=== PATIENT | female | born 2000 | race Caucasian/White ===

== ENCOUNTER 2018-02-18 15:52 | Emergency (ER) | payer MEDICAID, OTHER ==
[~2018-02-18] VITALS: Ht 172.7 cm; Wt 90.0 kg
[2018-02-18 15:58] VITALS: BP 138/79; PULSE 110; RESP 19; TEMP 99.1; O2SAT 97
[2018-02-18] MEDS ORDERED: SODIUM CHLOR 0.9% 1000 ML INJ 1,000 ML IV ONE (16:08)
[2018-02-18] MEDS ORDERED: SODIUM CHLORIDE 0.9% FLUSH 10 ML FLUSH IVF PRN (16:15)
[2018-02-18] MEDS ORDERED: OXYC1CAP PO (16:39)
[2018-02-18] MEDS ORDERED: BACL10TA PO (16:39)
[2018-02-18] MEDS ORDERED: CYCL10TA PO (16:39)
[2018-02-18] MEDS ORDERED: DIAZ10TA PO (16:39)
[2018-02-18] MEDS ORDERED: MORP1TAB24 PO (16:39)
[2018-02-18] MEDS ORDERED: GABA300C5 PO (16:39)
[2018-02-18 16:40] LABS: AUTOMATED NEUTROPHIL # 5.3 TH/MM3 (1.8-7.7); BASOPHIL # 0.1 TH/MM3 (0-0.2); EOSINOPHIL # 0.3 TH/MM3 (0-0.4); EOSINOPHIL % 2.9 % (0.0-4.0); HEMATOCRIT 29.6 % (35.0-46.0); HEMOGLOBIN 9.9 GM/DL (11.6-15.3); LYMPH % 31.1 % (9.0-44.0); LYMPHOCYTE # 2.7 TH/MM3 (1.0-4.8); MEAN CELL VOLUME 85.3 FL (80.0-100.0); MEAN CORPUSCULAR HEMOGLOBIN 28.7 PG (27.0-34.0); MEAN CORPUSCULAR HGB CONC 33.6 % (32.0-36.0); MONO % 5.2 % (0.0-8.0); MONOCYTE # 0.5 TH/MM3 (0-0.9); NEUT % 59.8 % (16.0-70.0); PLATELET COUNT 733 TH/MM3 (150-450); RED BLOOD COUNT 3.46 MIL/MM3 (4.00-5.30); RED CELL DISTRIBUTION WIDTH 13.7 % (11.6-17.2); WHITE BLOOD COUNT 8.8 TH/MM3 (4.0-11.0)
--- NOTE | 2018-02-18 16:43 | PD ---
HPI Chief Complaint: Altered Mental Status Time Seen by Provider: 16:07 Travel History International Travel<30 days: No Contact w/Intl Traveler<30days: No Traveled to known affect area: No History of Present Illness HPI 18-year-old female patient with history of lumbar surgery with with [facility], complicated by lumbar neuropathy and radiculopathy, has difficulty with her urine and bowel, weakness in her right leg since the surgery several months ago according to parents, has been getting rehab at a facility first and is now at home, had problems with UTI recently, and had been released to go back home with several pain medications, medications for muscle spasms, and today started having syncopal episodes this afternoon. Patient was fairly disoriented when she woke up, thought she was 1 years old, did not recognize people. She admits that she has been on a lot of pain medications. In addition, in the past week she has seen doctors at [facility] as well as [place], apparently due to the above issues and had workup which did not show any signs of acute intracranial processes although they did note that there is some fluid at the surgical site in the lumbar region but this fluid is thought to be related to surgery and likely to resorb on its own according to her neurosurgeon. Modifying Factors: None Associated Signs & Symptoms: Syncopal episodes, altered mental status Risk Factors: Pain medications PFSH Past Medical History Medical History: Denies Significant Hx Diminished Hearing: No Immunizations Current: Yes ?: Not Menopausal: No : 0 Para: 0 Social History Alcohol Use: No Tobacco Use: No Substance Use: No Allergies-Medications (Allergen,Severity, Reaction): Coded Allergies: penicillin G (Unverified Allergy, Unknown, Rash, 02/18/18) Reported Meds & Prescriptions Reported Meds & Active Scripts Active Reported Gabapentin 300 Mg Cap 300 Mg PO TID Flexeril (Cyclobenzaprine HCl) 10 Mg Tab 10 Mg PO TID Baclofen 10 Mg Tab 10 Mg PO Q8HR Diazepam 10 Mg Tab 10 Mg PO Q8HR PRN Oxycodone (Oxycodone HCl) 5 Mg Cap 5 Mg PO Q4H PRN Take 1 -2 tablets every 4 hours as needed for pain Morphine ER (Morphine Sulfate) 15 Mg Tab 15 Mg PO Q12HR Review of Systems Except as stated in HPI: all other systems reviewed are Neg Physical Exam Narrative GENERAL: Well-developed young white female patient who currently has a Evans catheter, diaper on, and is lethargic but arousable and oriented. SKIN: Focused skin assessment warm/dry. HEAD: Atraumatic. Normocephalic. EYES: Pupils equal and round. No scleral icterus. No injection or drainage. ENT: No nasal bleeding or discharge. Mucous membranes pink and moist. NECK: Trachea midline. No JVD. CARDIOVASCULAR: Regular rate and rhythm. No murmur appreciated. RESPIRATORY: No accessory muscle use. Clear to auscultation. Breath sounds equal bilaterally. GASTROINTESTINAL: Abdomen soft, non-tender, nondistended. Hepatic and splenic margins not palpable. MUSCULOSKELETAL: No obvious deformities. No clubbing. No cyanosis. No edema. NEUROLOGICAL: Awake and lethargic. No obvious cranial nerve deficits. Motor grossly within normal limits. Normal speech. PSYCHIATRIC: Appropriate mood and affect; insight and judgment normal. Data Data Last Documented VS Vital Signs Date Time Temp Pulse Resp B/P (MAP) Pulse Ox O2 Delivery O2 Flow Rate FiO2 02/18/18 18:16 98.3 93 17 121/70 (87) 99 Room Air Orders Orders Ed Urine Pregnancytest Poc (02/18/18 16:08) Complete Blood Count With Diff (02/18/18 16:08) Comprehensive Metabolic Panel (02/18/18 16:08) Urinalysis - C+S If Indicated (02/18/18 16:08) Ecg Monitoring (02/18/18 16:08) Iv Access Insert/Monitor (02/18/18 16:08) Oximetry (02/18/18 16:08) Sodium Chloride 0.9% Flush (Ns Flush) (02/18/18 16:15) Sodium Chlor 0.9% 1000 Ml Inj (Ns 1000 M (02/18/18 16:08) Labs Laboratory Tests Test 02/18/18 16:10 White Blood Count 8.8 TH/MM3 Red Blood Count 3.46 MIL/MM3 Hemoglobin 9.9 GM/DL Hematocrit 29.6 % Mean Corpuscular Volume 85.3 FL Mean Corpuscular Hemoglobin 28.7 PG Mean Corpuscular Hemoglobin Concent 33.6 % Red Cell Distribution Width 13.7 % Platelet Count 733 TH/MM3 Mean Platelet Volume 8.0 FL Neutrophils (%) (Auto) 59.8 % Lymphocytes (%) (Auto) 31.1 % Monocytes (%) (Auto) 5.2 % Eosinophils (%) (Auto) 2.9 % Basophils (%) (Auto) 1.0 % Neutrophils # (Auto) 5.3 TH/MM3 Lymphocytes # (Auto) 2.7 TH/MM3 Monocytes # (Auto) 0.5 TH/MM3 Eosinophils # (Auto) 0.3 TH/MM3 Basophils # (Auto) 0.1 TH/MM3 CBC Comment DIFF FINAL Differential Comment Urine Color Colorless Urine Turbidity CLEAR Urine pH 7.0 Urine Specific [place] 1.002 Urine Protein NEG mg/dL Urine Glucose (UA) NEG mg/dL Urine Ketones NEG mg/dL Urine Occult Blood SMALL Urine Nitrite NEG Urine Bilirubin NEG Urine Urobilinogen LESS THAN 2 mg/dL Urine Leukocyte Esterase NEG Urine RBC LESS THAN 1 /hpf Urine WBC 1 /hpf Urine Squamous Epithelial Cells <1 /hpf Urine Mucus FEW /lpf Microscopic Urinalysis Comment CULT NOT INDICATED Blood Urea Nitrogen 10 MG/DL Creatinine 0.80 MG/DL Random Glucose 93 MG/DL Total Protein 7.3 GM/DL Albumin 2.8 GM/DL Calcium Level 8.9 MG/DL Alkaline Phosphatase 89 U/L Aspartate Amino Transf (AST/SGOT) 27 U/L Alanine Aminotransferase (ALT/SGPT) 31 U/L Total Bilirubin 0.1 MG/DL Sodium Level 140 MEQ/L Potassium Level 3.9 MEQ/L Chloride Level 104 MEQ/L Carbon Dioxide Level 27.1 MEQ/L Anion Gap 9 MEQ/L Estimat Glomerular Filtration Rate 91 ML/MIN [facility] Medical Decision Making Medical Screen Exam Complete: Yes Emergency Medical Condition: Yes Medical Record Reviewed: Yes Interpretation(s) Laboratory Tests Test 02/18/18 16:10 Red Blood Count 3.46 MIL/MM3 (4.00-5.30) Hemoglobin 9.9 GM/DL (11.6-15.3) Hematocrit 29.6 % (35.0-46.0) Platelet Count 733 TH/MM3 (150-450) Urine Occult Blood SMALL (NEG) Urine Mucus FEW /lpf (OCC) Albumin 2.8 GM/DL (3.4-5.0) Total Bilirubin 0.1 MG/DL (0.2-1.0) Differential Diagnosis Overmedication versus sepsis versus electrolyte abnormalities versus orthostasis Narrative Course Patient has been put on telemetry, I do not see any significant dysrhythmias. She has little tachycardic initially but has been given IV fluids by EMS. Lab work did not show significant electrolyte abnormalities, leukocytosis, or UTI currently. She was observed in the ER for 2 hours and is awake, alert, recognizing people. Apparently according to the parents, symptoms of been going on since afternoon, and she has not been like that before. She is on multiple pain medications, muscle relaxants, as well as benzodiazepine. And considering her medication list, I am a little concerned that she may be overmedicated. I have initially considered admitting her as an observation here and have talked to hospitalist but they state that she should ideally be evaluated by [facility] since she has a fairly complex patient and all of her medical care has been there. At this point, I have talked to Dr. Fuentes who is covering for patient's neurosurgeon, Dr. Murphy, and he had talked to Dr. Murphy and would like her to be transferred ED to ED to [facility]. Case was then discussed with Dr. Ballard, ED physician in charge currently, and he accepts the case to be transferred by ground to [facility]. Diagnosis Primary Impression: Syncopal episodes Additional Impression: Medication overdose Disposition: 70 TRANSFER TO OTHER FACILITY ([facility]) Condition: Stable Huan Umana MD Feb 18, 2018 16:43
[2018-02-18 16:51] LABS: BILIRUBIN, URINE NEG (NEG); BLOOD, URINE SMALL (NEG); GLUCOSE,URINE NEG (NEG); KETONE, URINE NEG (NEG); MUCUS URINE FEW /lpf (OCC); NITRITE,URINE NEG (NEG); SQUAMOUS EPITHELIAL CELL URINE <1 /hpf (0-5); URINE COLOR Colorless (YELLW/STRAW); URINE LEUKOCYTE ESTERASE NEG (NEG)
[2018-02-18 16:53] LABS: ALBUMIN 2.8 GM/DL (3.4-5.0); ALT (GPT) 31 U/L (9-42); AST (GOT) 27 U/L (16-38); BICARBONATE 27.1 MEQ/L (21.0-32.0); BLOOD UREA NITROGEN 10 MG/DL (7-18); CALCIUM 8.9 MG/DL (8.5-10.1); CHLORIDE 104 MEQ/L (98-107); GLOMERULAR FILTRATION RATE 91 ML/MIN (>89); GLUCOSE,RANDOM 93 MG/DL (74-106); SODIUM (NA) 140 MEQ/L (136-145)
[2018-02-18 16:55] LABS: ALKALINE PHOSPHATASE 89 U/L (45-117); TOTAL BILIRUBIN ADULT 0.1 MG/DL (0.2-1.0); TOTAL PROTEIN 7.3 GM/DL (6.4-8.2)
[2018-02-18 18:16] VITALS: BP 121/70; PULSE 93; RESP 17; TEMP 98.3; O2SAT 99
[2018-02-18] MEDS ORDERED: MORPHINE SULFATE 4 MG/ML INJ IV PUSH ONE (19:15)
--- NOTE | 2018-02-19 13:49 | EKG ---
Date Performed: 02/18/2018 Time Performed: 19:06:04 PTAGE: 18 years EKG: Sinus rhythm NORMAL ECG NO PREVIOUS TRACING DOCTOR: Cholo Nevarez Interpretating Date/Time 02/19/2018 13:44:50
== END 2018-02-18 23:18 | disposition short-term general hospital (02) ==
LOC: NEPE 15:52
DX: R55 Syncope and collapse (principal); T50.901A Poisoning by unspecified drugs, medicaments and biological substances, accidental (unintentional), initial encounter; G62.9 Polyneuropathy, unspecified; M54.10 Radiculopathy, site unspecified; Z88.0 Allergy status to penicillin; Z79.899 Other long term (current) drug therapy
CPT/HCPCS: 80053; 81001; 84703; 85025; 93005; 96361; 96374; 99285; J2270; J7030